=== PATIENT | female | born 1965 | race Caucasian/White ===

== ENCOUNTER → 2017-05-02 | Outpatient (CLI) | payer OTHER | LOC: BRMIMAGING 12:03 | PROVIDERS: ATTEND Nurse Practitioner Adult Health | DX: Z12.31 Encounter for screening mammogram for malignant neoplasm of breast (principal) ==

== ENCOUNTER → 2017-11-23 | Outpatient (CLI) | payer OTHER | LOC: BMCIMAGING 13:07 | DX: R06.00 Dyspnea, unspecified (principal) ==

== ENCOUNTER → 2018-06-04 | Outpatient (CLI) | payer OTHER | LOC: FIMAGING 12:36 | PROVIDERS: ATTEND Internal Medicine | DX: Z12.31 Encounter for screening mammogram for malignant neoplasm of breast (principal); R92.8 Other abnormal and inconclusive findings on diagnostic imaging of breast ==

== ENCOUNTER → 2018-06-12 | Outpatient (CLI) | payer OTHER | LOC: EMCIMAGING 09:04 ==

== ENCOUNTER → 2018-06-12 | Outpatient (CLI) | payer OTHER | LOC: EMCIMAGING 09:02 | PROVIDERS: ATTEND Internal Medicine | DX: R92.8 Other abnormal and inconclusive findings on diagnostic imaging of breast (principal) ==